=== PATIENT | male | born 1945 | race Caucasian/White ===

== ENCOUNTER 2016-09-10 11:39 | Outpatient (CLI) | payer MEDICARE ==
[2015-07-04 10:24] VITALS: BP 134/79
[2016-09-10 12:02] LABS: BASOPHILS % 0.6 (0.0-1.5); EOSINOPHILS % 3.5 % (0.0-6.8); LYMPHOCYTES # 1.2 # k/uL (0.6-4.0); MEAN CORPUSCULAR HEMOGLOBIN 28.6 pg (28.0-34.0); MONOCYTES # 0.4 # k/uL (0.0-0.9); MONOCYTES % 5.7 % (0.0-11.0); NEUTROPHILS # 4.2 # k/uL (1.4-7.7)
[2016-09-10 13:35] LABS: eGFR (African) > 60; eGFR (Non-African) > 60
== END 2016-09-10 11:40 ==
LOC: LAB 11:39
PROVIDERS: ATTEND Family Medicine
DX: E78.00 Pure hypercholesterolemia, unspecified (principal); I25.10 Atherosclerotic heart disease of native coronary artery without angina pectoris; Z51.81 Encounter for therapeutic drug level monitoring; I10 Essential (primary) hypertension
CPT/HCPCS: 36415; 80053; 80061; 85025

== ENCOUNTER 2016-09-22 09:41 | Outpatient (CLI) | payer MEDICARE ==
[2015-07-04 10:24] VITALS: BP 134/79
--- NOTE | 2016-09-22 10:57 | Diagnostic Imaging Report ---
[facility] [address] [facility] [id number] Report Submission Date: Sep 22, 2016 10:52:13 AM M1A1 TANK CREWMAN Patient Study Name: DARRELL MARSHALL Date: Sep 22, 2016 9:57:40 AM M1A1 TANK CREWMAN Modality Type: US\OT Gender: M Description: LIMITED BILAT ELMO 1-2 LVL : 49 Institution: [facility] Physician: ARIANA GILL Limited bilateral elmo History: RIGHT LOWER EXTREMITY CLAUDICATION, NUMBNESS, CAD, HX CABG, HYPERTENTION, HYPERLIPIDEMIA Findings: No similar comparison studies Right: Brachial systolic pressure is 161 millimeters Hg At the posterior tibial artery, elmo -0.55.. Moderate arterial disease At dorsalis pedis elmo -0.56... Moderate arterial disease At the toes ab- 0.34... Moderate to severe arterial disease Left Brachial artery systolic pressure is 156 At posterior tibial artery, ELMO is 0.86... Borderline/ mild arterial disease And dorsalis pedis artery, ELMO 0.76..... Mild to moderate arterial disease At the level of the toes, elmo is 0.56.. Mild arterial disease Impression: There is moderate arterial disease in the right leg at the ankle and moderate to severe arterial disease at the level of the toes. Vascular consultation may be done. There is mild to moderate arterial disease at the level of the left ankle Electronically signed on Sep 22, 2016 10:52:13 AM M1A1 TANK CREWMAN by: Sahra DOOLEY
== END 2016-09-22 09:50 ==
LOC: RAD 09:41
PROVIDERS: ATTEND Family Medicine
DX: I73.9 Peripheral vascular disease, unspecified (principal); I10 Essential (primary) hypertension; E78.5 Hyperlipidemia, unspecified
CPT/HCPCS: 93922

== ENCOUNTER 2016-09-30 13:31 | Outpatient (CLI) | payer MEDICARE ==
[2015-07-04 10:24] VITALS: BP 134/79
--- NOTE | 2016-10-01 10:19 | OP Clinic Progress Note ---
REFERRING PHYSICIAN: Dr. Connie Delacruz REASON FOR VISIT: This 70-year-old man is seen with a variety of different symptoms of nasal airway obstruction and rhinosinusitis. He has had several decades of problems. They are slowly getting worse. He has more nasal airway obstruction on the left side than on the right. He saw an talent development director several years ago and talked with him about having nasal surgery since he has nasal obstruction and known to have a nasal septal deviation. He smoked in the past but no longer smokes and has a generally fairly good respiratory environment currently. He states that he has taken multiple courses of a variety of antibiotics and has somewhat recently, he has taken ciprofloxacin. He has postnasal drainage. He has headaches overlying the retro-orbital area and perhaps a little bit more on the right side than on the left. He has mouth breathing and postnasal drainage. He is with a female and she notes that he has really very marked snoring and has some cessation of breathing. The patient does have left nasal septal deviation. 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 He has inflammatory changes overlying the right middle turbinate with scabbing and crusting. The eardrums and ear canals are fairly clear. All the eardrums are slightly retracted but there is no fluid and no cerumen blockage. PLAN: Overall, Mr. Fish has fairly significant symptoms of cephalgia more then likely associated with an ethmoid-type of sinusitis, nasal airway obstruction, mouth breathing and a significant airway obstructive sleep disorder, whether it is sleep apnea or not, it is a little difficult to tell, left septal deviation, and nasal valve collapse. I went over his options which include: 1. Doing nothing. 2. Returning to see the talent development director to see if allergy re-testing and shots could be of benefit. 3. Keep on taking medications. In this regard, I gave him cephalexin 500 mg 3 times a day for 2 weeks with a renewal to see if it could be of any benefit. 4. Changing of the environment in some way, but he really has a fairly clear respiratory environment. 5. Surgery. I went over the pros and cons of that. Although there is no guarantee, he has a fairly good probability of at least a moderate amount of symptomatic improvement. Risk factors includes his cardiovascular disease, apparently, he had coronary artery bypass about 4 years ago. He also has been offered a sleep study and if he has obstructive sleep apnea, he could try a CPAP or BiPAP. Patient has declined most of the factors. At this point, I have encouraged him , with his decline to do much different at this point in time, to take the cephalexin. I encouraged him to use saline nasal spray. He is using a prescription medication for his nose and he says he gets some improvement and he is encouraged to continue that. cc: Dr. Connie DOOLEY
== END 2016-09-30 13:32 ==
LOC: ENT 13:31
PROVIDERS: ATTEND Otolaryngology
DX: J34.89 Other specified disorders of nose and nasal sinuses (principal); R51 Headache; J01.20 Acute ethmoidal sinusitis, unspecified; R06.5 Mouth breathing; G47.33 Obstructive sleep apnea (adult) (pediatric)
CPT/HCPCS: G0463

== ENCOUNTER 2016-12-01 10:31 | Outpatient (CLI) | payer MEDICARE ==
[2015-07-04 10:24] VITALS: BP 134/79
== END 2016-12-01 10:32 ==
LOC: CARD 10:31
PROVIDERS: ATTEND Internal Medicine Cardiovascular Disease
DX: I73.9 Peripheral vascular disease, unspecified (principal)
CPT/HCPCS: G0463

== ENCOUNTER 2016-12-21 07:01 | Outpatient (CLI) | payer MEDICARE ==
[2015-07-04 10:24] VITALS: BP 134/79
[2016-12-21] MEDS ORDERED: ALBUTEROL SULFATE 2.5 MG/3 ML AMPUL.NEB NEB ONE (07:17)
== END 2016-12-21 07:02 ==
LOC: RT 07:01
PROVIDERS: ATTEND Family Medicine
DX: J43.1 Panlobular emphysema (principal)
CPT/HCPCS: 94060

== ENCOUNTER 2017-04-21 14:06 | Outpatient (CLI) | payer MEDICARE ==
[2015-07-04 10:24] VITALS: BP 134/79
--- NOTE | 2017-04-25 10:30 | OP Clinic Progress Note ---
REASON FOR VISIT: This 71-year-old man is seen in junction with his daughter. Communication is somewhat difficult clinically, as he has a fairly big hearing loss. 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 He is seen mostly because he has taken what he and his daughter feels like a very large amount of antibiotics to try to deal with sinonasal symptoms. He has pressure headaches overlying the maxillary sinuses, both sides about equal. He also has pressure and discomfort in the paranasal area and overlying the lower portions of the ethmoid areas bilaterally. There is reduced smell ability. He smoked in the past but has not smoked over the last about 4 years. He had a coronary artery bypass about 4 years ago. He states that he is in overall good health and his animal care service worker has stated that he is in good health. I went over pros, cons, and risks associated with surgery with the patient and his daughter. Again, he has a pretty large hearing loss and I have repeated things multiple times and he understands. Generally, surgery probably could improve him. It absolutely will not totally cure all of his symptoms. I believe getting a CT and going over this, as he is more interested currently in having the surgery. His daughter feels that he does a lot of communicating and uses good judgment. She states that he has had allergy testing and saw an front end architect in [place], [place], in the past. He snores quite heavily. He takes Tylenol frequently for the pressure and aching in his face. PLAN: He will get a CT scan. I have suggested that we arrange to get audiometry and described how we can go about doing that. Currently, he and his daughter are in the process of deciding again what they would like to do and I have left it to their election. The patient will continue his follow up depending on his decision. He has a tendency to want to "think about things and come back later" and that is where he is again currently. cc: Dr. Connie DOOLEY
== END 2017-04-21 14:07 ==
LOC: ENT 14:06
PROVIDERS: ATTEND Otolaryngology
DX: H91.8X9 Other specified hearing loss, unspecified ear (principal)
CPT/HCPCS: G0463

== ENCOUNTER 2017-07-27 12:20 | Outpatient (CLI) | payer MEDICARE ==
[2015-07-04 10:24] VITALS: BP 134/79
== END 2017-07-27 12:22 ==
LOC: CARD 12:20
PROVIDERS: ATTEND Internal Medicine Cardiovascular Disease
DX: I73.9 Peripheral vascular disease, unspecified (principal); I25.10 Atherosclerotic heart disease of native coronary artery without angina pectoris; I10 Essential (primary) hypertension; E78.5 Hyperlipidemia, unspecified
CPT/HCPCS: G0463

== ENCOUNTER 2017-09-22 15:19 | Outpatient (CLI) | payer MEDICARE ==
[2015-07-04 10:24] VITALS: BP 134/79
--- NOTE | 2017-09-22 16:03 | Diagnostic Imaging Report ---
[address] [facility] [id number] [facility] [address] [address] Report Submission Date: Sep 22, 2017 4:01:47 PM HEAD OF VISUAL MERCHANDISING Patient Study Name: DARRELL MARSHALL Date: Sep 22, 2017 3:46:09 PM HEAD OF VISUAL MERCHANDISING Modality Type: CR Gender: M Description: SHOULDER : 49 Institution: [facility] Physician: JAIRO LANE Examination: Plain film shoulder History: Increasing shoulder discomfort. Comparison exams: None provided Findings: 2 views of the shoulder demonstrate normal cortical margins. No evidence for fracture or dislocation. Acromioclavicular joint degenerative spurring. No soft tissue abnormality Impression: Acromioclavicular joint degenerative changes. No fracture. If suspect soft tissue abnormality/injury, consider obtaining MRI to further evaluate. Electronically signed on Sep 22, 2017 4:01:47 PM HEAD OF VISUAL MERCHANDISING by: Muratza DOOLEY
--- NOTE | 2017-09-22 16:08 | Diagnostic Imaging Report ---
[address] [facility] [address] [facility] [address] [address] Report Submission Date: Sep 22, 2017 4:05:06 PM INFORMATION SYSTEMS SUPERVISOR Patient Study Name: DARRELL MARSHALL Date: Sep 22, 2017 3:35:18 PM INFORMATION SYSTEMS SUPERVISOR Modality Type: CR Gender: M Description: SPINE : 49 Institution: [facility] Physician: JAIRO LANE Examination: Cervical spine History: Increasing neck discomfort. Comparison exams: None available Findings: 6 views of the cervical spine demonstrate normal height and alignment. No anterior compression. No abnormal listhesis. Extensive osteophyte formation. Oblique views demonstrate neuroforamen narrowing due to ossific spurring. No odontoid abnormality. No prevertebral abnormality. Impression: Multilevel degenerative changes. If patient is experiencing neurologic symptoms, consider obtaining MRI to further evaluate. Electronically signed on Sep 22, 2017 4:05:06 PM INFORMATION SYSTEMS SUPERVISOR by: Murtaza DOOLEY
== END 2017-09-22 15:20 ==
LOC: RAD 15:19
PROVIDERS: ATTEND Family Medicine
DX: M54.12 Radiculopathy, cervical region (principal); M25.511 Pain in right shoulder
CPT/HCPCS: 72050; 73030

== ENCOUNTER 2017-10-13 14:48 | Outpatient (CLI) | payer MEDICARE ==
[2015-07-04 10:24] VITALS: BP 134/79
--- NOTE | 2017-10-15 09:00 | OP Clinic Progress Note ---
REASON FOR VISIT: This 71-year-old male is seen accompanied by one of his daughters. He had been scheduled for sinonasal surgery on June 07, 2017, and by history, he was a no show. He complains of nasal congestion, stuffiness, mouth breathing, and headaches that he feels are quite significantly debilitating. He is currently on amoxicillin for his sinonasal difficulties. He saw an solar energy technician 4 to 5 years ago. He states that he snores badly. His daughter acknowledges he snores quite significantly and clinically, has some degree of sleep apnea. He has been offered sleep studies and using a CPAP. He has used different types of nasal sprays including topical steroids, saline, and decongestant sprays by his history. He has a CT scan that shows at least a nasal septal deviation, more on the left side. He has some retention cysts in the left maxillary sinus. He has some mucoperiosteal thickening in both ethmoid areas. There is some john bullosa formation in addition in the middle turbinate on the right. I went over risks, problems, complications, no guarantee of improvement, and the understanding that a significant percentage of people get significant long- term improvement of this, but it certainly is not a guarantee. Almost guarantee that this will not be totally resolved. Complications including intraorbital and intracranial complications, scabbing, crusting, bleeding, ongoing snoring, and multiple issues are significantly covered. The patient has stated before that he understands these. He states that he understands these and his daughter acknowledges good understanding. She does answer some of the questions for him. Postoperative care is gone over carefully in addition. PLAN: Plan is for sinonasal surgery which includes john bullosa, submucosal resection of inferior turbinates, vestibular stenosis repair, septoplasty, and antrostomies. Additional surgeries or treatments could be made depending on the findings at the time of surgery. Again, the patient states that he feels like he understands. He has come voluntarily choosing to have the surgery. cc: Dr. Connie DOOLEY
== END 2017-10-13 14:50 ==
LOC: ENT 14:48
PROVIDERS: ATTEND Otolaryngology
DX: J32.9 Chronic sinusitis, unspecified (principal)
CPT/HCPCS: G0463